=== PATIENT | male | born 2005 | race Two or more races ===

== ENCOUNTER 2024-02-28 21:03 | Emergency (ER) | payer MEDICAID, OTHER ==
[~2024-02-28] VITALS: Ht 177.8 cm; Wt 84.4 kg
[2024-02-29] MEDS ORDERED: IBUP-1456 PO (02:05)
[2024-02-29 02:31] VITALS: BP 114/92; PULSE 91; RESP 18; TEMP 98.1; O2SAT 97
== END 2024-02-29 03:20 | disposition home or self-care (01) ==
LOC: ER 21:03
DX: S83.91XA Sprain of unspecified site of right knee, initial encounter (principal); X58.XXXA Exposure to other specified factors, initial encounter; Y93.71 Activity, boxing; Y92.89 Other specified places as the place of occurrence of the external cause; Y99.8 Other external cause status
CPT/HCPCS: 29505; 73562

== ENCOUNTER 2024-09-30 19:16 | Emergency (ER) | payer MEDICAID ==
[~2024-09-30] VITALS: Ht 12.7 cm; Wt 9.0 kg
[~2024-09-30 19:16] MED LIST: IBUP-1456 PO
[2024-09-30 20:48] LABS: Rapid Influenza A Negative (Negative); Rapid Influenza B Negative (Negative)
[2024-09-30 20:49] LABS: COVID19 ANTIGEN SOFIA FIA NEGATIVE (NEGATIVE)
--- NOTE | 2024-09-30 22:06 | DVH ---
CHEST RADIOGRAPH Indication: cough Technique: Frontal and lateral view of the chest was obtained Comparison: None FINDINGS: Lines and Tubes: None Lungs: Clear Pleura: No effusion. No pneumothorax. Cardiomediastinal contours: Unremarkable Bones: Unremarkable IMPRESSION: No abnormality.
[2024-09-30 22:29] VITALS: BP 131/73; PULSE 108; RESP 18; O2SAT 98
[2024-09-30] MEDS ORDERED: ACET500T58 PO (22:30)
[2024-09-30] MEDS ORDERED: ALBUAER3 IN (22:30)
[2024-09-30] MEDS ORDERED: AZIT-43 PO (22:30)
[2024-09-30] MEDS ORDERED: PRED20TA2 PO (22:30)
--- NOTE | 2024-09-30 22:30 | ED.PDOC ---
SOB-HPI HPI Comments 18-year-old male presents to ER with complaints of flu-like symptoms x3 days. Patient reports he has been experiencing congestion, intermittent headache and intermittent fever x3 days. Notes that he has also had a dry cough x3 months that turned productive with green phlegm x3 days. He rates his current frontal headache pain a 7/10. Notes he has been taking Tylenol for her symptoms with slight relief. Patient presents to ER with low-grade fever on arrival at 99.6 F, alert and oriented x4, with steady gait, in no distress. Denies shortness of breath, chest pain, hemoptysis, body aches, chills, night sweats, sore throat, nausea/vomiting, dizziness, known exposure to sick contacts or any further sympt oms/complaints Chief Complaint: Flu like Time Seen by MD: 19:46 Primary Care Provider: UNCHRISTIANWEris Reviewed notes: Nurses Notes, Medications, Allergies Information Source: Patient Mode of Arrival: Ambulatory Past Medical History PAST MEDICAL HISTORY: Asthma Surgical History: Denies all surgeries Family History Family History: Unknown Social History Smoker: Non-Smoker Alcohol: Denies ETOH Use Drugs: Denies Drug Use Lives In: Home Constitutional: reports: others (As stated in HPI) EENTM: reports: others (As stated in HPI) Respiratory: reports: others (As stated in HPI) Cardiovascular: denies: chest pain, dizzy spells, diaphoresis, Dyspnea on exertion, edema, irregular heart beat, left arm pain, lightheadedness, palpitations, PND, syncope, others Gastrointestinal: denies: abdomen distended, abdominal pain, blood streaked bowels, constipated, diarrhea, dysphagia, difficulty swallowing, hematemesis, melena, nausea, poor appetite, poor fluid intake, rectal bleeding, rectal pain, vomiting, others Genitourinary: denies: burning, dysuria, flank pain, frequency, hematuria, incontinence, penile discharge, penile sore, pain, testicle pain, testicle swelling, urgency, others Neurological: reports: others (As stated in HPI) Musculoskeletal: denies: back pain, gout, joint pain, joint swelling, muscle pain, muscle stiffness, neck pain, others Integumetry: denies: bruises, change in color, change in hair/nails, dryness, laceration, lesions, lumps, rash, wounds, others Allergic/Immunocompromised: denies: Difficulty Healing, Frequent Infections, H lorraine, Itching, others Hematologic/Lymphatic: denies: anemia, blood clots, easy bleeding, easy bruising, swollen glands, others Endocrine: denies: excessive hunger, excessive sweating, excessive thirst, excessive urination, flushing, intolerance to cold, intolerance to heat, unexplained weight gain, unexplained weight loss, others Psychiatric: denies: anxiety, bipolar disorder, depression, hopeless, panic disorder, schizophrenia, sleepless, suicidal, others Physical Exam General Appearance: No Apparent Distress, Normal HEENT: Normal ENT Inspection, PERRL/EOMI, Pharynx Normal, TMs Normal Neck: Full Range of Motion, Non-Tender, Normal Respiratory: Chest Non-Tender, Lungs Clear, No Accessory Muscle Use, No Respiratory Distress, Normal Breath Sounds Cardiovascular: No Murmur, No Gallop, Regular Rate/Rhythm Breast Exam: Deferred Gastrointestinal: NOT DONE Genitalia: Deferred Pelvic: Deferred Rectal: Deferred Extremities: Normal capillary refill, Normal range of motion Neurologic: Alert, intelligence analyst II-XII nml as Tested, No Motor Deficits, Normal Affect, Normal Mood, No Sensory Deficits Cerebellar Function: Normal Reflexes: Normal Skin: Dry, Normal Color, Warm Lymphatic: No Adenopathy Was a procedure done? Was a procedure done?: No Sedation Sedation?: No Differential Dx Differential Diagnosis: Pneumonia, Respiratory Distress, Other (COVID 19, influenza) X-Ray, Labs, Meds, VS Vital Signs Date Time Temp Pulse Resp B/P (MAP) Pulse Ox O2 Delivery O2 Flow Rate FiO2 09/30/24 22:29 108 18 98 Room Air 0 09/30/24 22:29 99.9 108 18 131/73 (92) 98 99.9 09/30/24 19:42 99.6 118 18 133/82 (99) 96 99.6 Lab Test 09/30/24 20:25 Range/Units Influenza Type A Antigen Negative Negative Influenza Type B Antigen Negative Negative SARS-CoV-2 Antigen (Rapid) Negative NEGATIVE PATIENT: KATHYA MOLINACCT: [id number]: [id number] : 2005 LOC: ER ROOM / BED: / AGE / SEX: 18 / M ADM STATUS: REG ER SERVICE DT: 04/2133 ORDERING PHYSICIAN: GOVIND PEACE PROCEDURE(s): CXR2 - CHEST TWO VIEWS ROUTINE REASON: cough ORDER NUMBER(s): [id number], ACCESSION NUMBER(s): [id number] CHEST RADIOGRAPH Indication: cough Technique: Frontal and lateral view of the chest was obtained Comparison: None FINDINGS: Lines and Tubes: None Lungs: Clear Pleura: No effusion. No pneumothorax. Cardiomediastinal contours: Unremarkable Bones: Unremarkable IMPRESSION: No abnormality. ATED BY: KEVIN BENDER MD DICTATED DATE/TIME: 09/30/242203 SIGNED BY: KEVIN BENDER MD SIGNED DATE/TIME: 09/30/242203 CC: Swab results reviewed-negative Rocephin 1 g IM ordered Solu-Medrol 125 mg IM ordered Tylenol 650 mg p.o. ordered Patient in no distress during ER visit/prior to discharge Chest x-ray reviewed Advised to drink plenty of fluids Advised to follow up with PCP in 1-2 days Patient verbalized understanding and agreeable with current plan of care Advised to return to ER immediately if symptoms worsen Images Reviewed?: Images reviewed and evaluated by me Time of 1ST Reevaluation: 22:02 Reevaluation 1ST: N/A Patient Education/Counseling: Diagnosis, Treatment, Prognosis, Need For Follow Up Family Education/Counseling: No Family Present Departure 1 Departure Time of Disposition: 22:22 Impression: Primary Impression: Acute asthmatic bronchitis Disposition: 01 HOME / SELF CARE / HOMELESS Condition: Stable e-Prescriptions Acetaminophen (Acetaminophen) 500 Mg Tab 500 MG PO Q4HPRN, #30 TAB 0 Refills Prov: GOVIND PEACE 09/30/24 Albuterol Sulfate (VENTOLIN MDI) 90 Mcg Ih 2 PUFF IN Q4HPRN, #1 INH 0 Refills Prov: GOVIND PEACE 09/30/24 Prednisone (Prednisone) 20 Mg Tab 20 MG PO BID for 5 Days, #10 TAB 0 Refills Prov: GOVIND PEACE 09/30/24 Azithromycin (Azithromycin) 250 Mg Tab 250 MG PO DAILY MDD 500 for 5 Days, #6 TAB 0 Refills 2 TABLETS ORALLY ON DAY ONE, THEN 1 TABLET ORALLY DAILY FOR 4 DAYS Prov: GOVIND PEACE 09/30/24 Discharged With: Self Critical Care Note Critical Care Time?: No Stability Stability form required: No Heart Score Heart Score: Heart Score Response (Comments) Value History N/A 0 EKG N/A 0 Age N/A 0 Risk Factors N/A 0 Troponin N/A 0 Total 0 GOVIND PEACE Sep 30, 2024 22:30
[2024-09-30 22:53] VITALS: TEMP 99.9
[2024-09-30] MEDS: ACETAMINOPHEN 325 MG TAB PO ONE (22:53)
[2024-09-30] MEDS: methylPREDNISolone SOD SUCC 125 MG/2 ML VL IM ONE (22:54)
[2024-09-30] MEDS: cefTRIAXone SOD 1,000 MG VL IM ONE (22:54)
== END 2024-09-30 23:23 | disposition home or self-care (01) ==
LOC: ER 19:16
DX: J45.909 Unspecified asthma, uncomplicated (principal); Z20.822 Contact with and (suspected) exposure to COVID-19
CPT/HCPCS: 36415; 71046; 87426; 87804; 96372; 99284; J0696; J2919